=== PATIENT | male | born 1990 | race Two or more races ===

== ENCOUNTER 2022-02-19 20:17 | Emergency (ER) | payer OTHER ==
[~2022-02-19] VITALS: Ht 170.2 cm; Wt 81.6 kg
[2022-02-19] MEDS ORDERED: BIKTARVY 50-201 EACH (20:37)
== END 2022-02-19 22:17 | disposition home or self-care (01) ==
LOC: ER 20:17
DX: M94.0 Chondrocostal junction syndrome [Tietze] (principal)